=== PATIENT | female | born 1960 | race African-American/Black ===

== ENCOUNTER 2019-07-18 08:49 | Inpatient (IN) | payer OTHER ==
[2019-07-18] VITALS (12 sets, daily range): BP systolic 115–165; BP diastolic 63–91
[~2019-07-18] VITALS: Ht 172.7 cm; Wt 89.1 kg
--- NOTE | ~2019-07-18 | EMS ---
[address] [address] EMS Patient Care Report Name: VERÓNICA EASTMAN Room #: 360-P ADM IN M.R.#: [id number] Admission: 07/18/19 Attend Phys: Mike Kerns MD Discharge: Date of : 56 Report #: [id number] THIS REPORT FOR: //name// Report Transmitted: 07/18/2019 08:21 EMS Care Summary [place], [place] Incident [id number] @ 07/18/2019 08:20 Incident Location [id number] [place] [address] Patient DEEPIKA EASTMAN Female, 58 Years 1960 Patient Address [address] [place], [place] [id number] Patient History Cardiac Arrythmia,Congestive Heart Failure (CHF),Chronic Obstructive Pulmonary Disease (COPD),Diabetes,Hypertension (HTN),Pacemaker/AICD,Hyperlipidemia,Morbid Obesity,Cardiac Condition - Other, Patient Allergies Codeine,Penicillin allergy, Patient Medications Famotidine, Lasix, Ondansetron, Colace, Prednisone, Ventolin, Xarelto, Morphine, Amlodipine, Metoprolol, Zinc, Oxybutynin, Gabapentin, Fentanyl, Chief Complaint SOA Disposition Transported No Lights/[place] Dispatch Reason Breathing Problem Transported To [facility] [address] [place] [address] EMS Patient Care Report Name: VERÓNICA EASTMAN Room #: 360-P [facility] IN Piter#: [id number] Admission: 07/18/19 Attend Phys: Mike Kerns MD Discharge: Date of : 56 Report #: [id number] RESPONDED TO [facility] FOR BREATHING PROBLEMS. UPON ARRIVAL PT FOUND LAYING IN BED ALERT BUT EFFORT TO BREATHE. PT ALREADY ON SECOND ALBUTEROL TREATMENT AND SATS AT 86. INITIALLY PT SATS AT 60 PER NC STAFF. PT HAD EDEMA IN BOTH LIMBS AND DIALYSIS FISTULA IN RIGHT ARM. PT SPEAKS LABORED SENTENCES AND REPORTS FEELING SOA SINCE LAST NIGHT. PT TEAM LIFTED TO COT AND PUT ON NRB AT 15LPM. PT VITALS AND 3 LEAD OBTAINED. PT TRANSPORTED NONEMERGENCY TO [facility]. EN ROUTE PT SATS INCREASED AND PT REPORTS MILD RELIEF. PT TEAM LIFTED TO BED AND HANDRAILS UP. REPORT GIVEN TO NURSE. Initial Vitals @08:43P: 88,R: 22,BP: 118/74,SpO2: 93, @08:32P: 90,R: 22,BP: 118/72,Pain: 8/10,GCS: 15,Glucose: 124,SpO2: 86,Revised Trauma: 12, Assessments @08:27MENTAL:Time Oriented,Person Oriented,Event Oriented,Place Oriented,SKIN:HEENT:Head/Face: No Abnormalities,Neck/Airway: No Abnormalities,LUNG SOUNDS:General: No Abnormalities,Left Upper: No Abnormalities,Right Upper: No Abnormalities,Left Lower: No Abnormalities,Right Lower: No Abnormalities,ABDOMEN:General: No Abnormalities,Left Upper: No Abnormalities,Right Upper: No Abnormalities,Left Lower: No Abnormalities,Right Lower: No Abnormalities,PELVIS//GI:Incontinence,EXTREMITIES:Right Leg: Edema,Left Leg: Edema,Left Arm: No Abnormalities,Right Arm: No Abnormalities,PULSE:NEURO:No Abnormalities,@08:32MENTAL:No Abnormalities,SKIN:HEENT:Head/Face: No Abnormalities,Eyes: No Abnormalities,Neck/Airway: No Abnormalities,LUNG SOUNDS:General: No Abnormalities,Left Upper: No Abnormalities,Right Upper: No Abnormalities,Left Lower: No Abnormalities,Right Lower: No Abnormalities,ABDOMEN:General: No Abnormalities,Left Upper: No Abnormalities,Right Upper: No Abnormalities,Left Lower: No Abnormalities,Right Lower: No Abnormalities,PELVIS//GI:Incontinence,EXTREMITIES:Left Leg: Edema,Right Leg: Edema,Left Arm: No Abnormalities,Right Arm: No Abnormalities,PULSE:NEURO:No Abnormalities, Impression Acute Respiratory Distress (Dyspnea) Procedures @08:30Oxygen FlowRate: 15 Device: Non Re-breather Mask (NRB) Response: ImprovedSucceeded@PTAAlbuterol - 2.5 Milligrams (mg) - Nebulized@08:353-Lead ECGResponse: UnchangedSucceeded@08:27ALS AssessmentResponse: UnchangedSucceeded 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,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 - 2.5 Milligrams (mg) - Nebulized, 08:19,Call Received 08:19,Dispatch Notified [address] [address] EMS Patient Care Report Name: VERÓNICA EASTMAN Room #: 360-P [facility] IN M.R.#: [id number] Admission: 07/18/19 Attend Phys: Mike Kerns MD Discharge: Date of : 56 Report #: [id number] 08:20,Dispatched 08:21,En Route 08:25,On Scene 08:27,At Patient 08:27,ALS Assessment,Response: UnchangedSucceeded, 08:30,Oxygen FlowRate: 15 Device: Non Re-breather Mask (NRB) Response: ImprovedSucceeded, 08:32,BP: 118/72 M,PULSE: 90,RR: 22 R,SPO2: 86 Ox,ETCO2: ,B,PAIN: 8,GCS: 15, 08:35,3-Lead ECG,Response: UnchangedSucceeded, 08:37,Depart Scene 08:43,BP: 118/74 M,PULSE: 88,RR: 22 R,SPO2: 93 Ox,ETCO2: ,BG: ,PAIN: ,GCS: , 08:54,At Destination 09:11,Call Closed Disclaimer v1.1 Copyright 2020 [employer] This EMS Care Summary contains data elements from the applicable legal record (which may be displayed differently). It is designed to provide pertinent information for the following purposes: continuity of care, clinical quality, and state data reporting. The complete legal record is available to ED staff and administrators of the receiving hospital in [facility]'s Patient Tracker. All data is provided "as is."
--- NOTE | ~2019-07-18 | HC ---
[facility] [place] [address] [place] [address] CONSULTATION Name: VERÓNICA EASTMAN Room #: 241-P [facility] IN M.R.#: [id number] Admission: 07/18/19 Attend Phys: Mike Kerns MD Discharge: Date of : 56 Report #: [id number] THIS REPORT FOR: cc: Jc Lopez James D. DO Al-Absi, Ahmed I. MD ~ CC: Jc Kerns DATE OF SERVICE: 07/19/2019 REASON FOR CONSULTATION: Acute kidney injury. REASON FOR PRESENTATION: Shortness of breath. HISTORY OF PRESENT ILLNESS: This is a long-term patient, who was brought from her [facility] because of significant hypoxemia. The patient had reported that she has been having some issues with breathing in the last couple of days in her facility. She was found to have an O2 sat of 60% on 3 liters. She was placed on a nonrebreather. She was brought to our facility for further evaluation and management. She was found to have a significantly elevated creatinine at 3.0. I do not have any previous records on this patient other than some lab values back in 2013 and she had a normal kidney function back then. The patient completely denies any prior knowledge of kidney disease. The patient tells me that she was told at one point in another facility that she had abnormal kidney function, but she does not recall the exact details. She denies nonsteroidal anti-inflammatory medication usage. The patient is maintained on blood pressure medication, furosemide, steroids as an outpatient. She carries a diagnosis of diastolic heart failure, COPD, right-sided CVA, flaccid paralysis. She also is known to have DVT and PE. The patient was in [facility] for pneumonia and was discharged a few days ago. I do not have the details of her kidney disease values in that facility. PAST MEDICAL HISTORY: 1. Gastrointestinal bleeding. 2. Chronic obstructive pulmonary disease. 3. Heart failure. 4. Cerebrovascular accident. 5. Right-sided hemiplegia. 6. Chronic kidney disease, unknown baseline. 7. Laminectomy. 8. Diverticulosis. 9. Deep venous thrombosis. 10. Pulmonary embolism. 11. Asthma. 12. Remote history of peritoneal abscess. [facility] [address] [place] [address] CONSULTATION Name: VERÓNICA EASTMAN Room #: 241-P [facility] IN [facility]#: [id number] Admission: 07/18/19 Attend Phys: Mike Kerns MD Discharge: Date of : 56 Report #: [id number] MEDICATIONS: 1. Carvedilol. 2. Eliquis. 3. Gabapentin. 4. Furosemide. 5. Nifedipine. 6. Hydrocodone. 7. Prednisone. ALLERGIES: PENICILLIN AND CODEINE. FAMILY HISTORY: Significant for hypertension. REVIEW OF SYSTEMS: GENERAL: Significant for fever and chills. CARDIOVASCULAR: As per the history of present illness. PULMONARY: As per the history of present illness. GASTROINTESTINAL: No nausea or vomiting. GENITOURINARY: No frequency, no urgency. MUSCULOSKELETAL: Occasional back pain and myalgias. NEUROLOGICAL: Right-sided flaccid paralysis. PHYSICAL EXAMINATION: VITAL SIGNS: The patient was on CPAP when evaluated this morning, blood pressure was 155/87. Temperature was 35.9. HEAD AND NECK: Maintained on CPAP. CARDIOVASCULAR: No rubs detected. CHEST: Decreased air entry bilaterally with rhonchi and crackles on the right side. ABDOMEN: Soft, nontender. LOWER EXTREMITIES: Trace edema. LABORATORY DATA: Reviewed. White blood cell count was 28.8. On presentation, hemoglobin was 8.1. Sodium is 142, potassium is 4.5, BUN is 80, creatinine is 2.8, down from 3 yesterday. Procalcitonin was significantly elevated at 17. IMPRESSION AND PLAN: 1. Acute kidney injury. 2. Chronic kidney disease, unknown baseline. 3. Respiratory failure. 4. Right-sided pneumonitis. 5. DVTs. 6. Post-IV filter. 7. Recent hospitalization at [facility]. 8. The patient's creatinine seems to be improving and her current worsening of [address] [address] CONSULTATION Name: VERÓNICA EASTMAN Room #: [facility]-P ADM IN ..#: [id number] Admission: 07/18/19 Attend Phys: Mike Kerns MD Discharge: Date of : 56 Report #: [id number] the kidney function is likely related to her current illness. She has a significantly elevated white blood cell count and calcitonin with a very significant infiltrate on the right side. 9. Continue with IV fluid. 10. Continue to watch volume status. 11. Continue to watch electrolytes. 12. Monitor urine output. 13. Appropriate antibiotic coverage for her pneumonitis. 14. Pulmonary following. 13. No diuresis at this point. By: [id number] Casey Kim MD /nt
[~2019-07-18 08:49] MED LIST: COLACE100 MG PO; COUMADIN 5 MG TA5 M1; FLAGYL500 M1 PO; GABAPENTIN800 M1 PO; LEVAQUIN 500 M500 M2 PO; LORAZEPAM 0.50.5 MG PO; MORPHINE SULFAT30 M2 PO; MS CONTIN15 MG PO; MS CONTIN30 MG PO; NORVASC10 MG PO; PHENERGAN 25 MG25 M1 PO; PREDNISONE 10 M10 MG PO; PRILOSEC 20 MG20 MG PO; PRINIVIL40 MG PO; PROAIR HFA8.5 GM INH; SYMBICORT160 MCG/4. INH; THEO-24300 MG PO; THEOPHYLLINE S300 M1 PO; VENTOLIN HFA 1818 GM INH; ZESTORETIC 20-1 EAC3 PO
[2019-07-18 09:07] LABS: HCO3 31.5 mmol/L (22.0-26.0); PCO2 56.5 mmHg (35.0-45.0); PO2 68.3 mmHg (80.0-100.0); pH 7.364 (7.360-7.450); sO2 92.7 % (92.0-98.0)
[2019-07-18 09:46] LABS: HEMATOCRIT 31.5 % (37.0-47.0); HEMOGLOBIN 9.7 gm/dL (12.0-15.0); MCH 28.5 pg (26.0-34.0); MCHC 30.9 g/dL (28.0-37.0); MCV 92.4 fL (80.0-100.0); PLATELET COUNT 184 thou/uL (150-400); RBC 3.41 mil/uL (4.20-5.00); RDW 17.1 % (10.5-14.5); WBC 28.8 thou/uL (4.0-11.0)
[2019-07-18 10:01] LABS: APTT 25.5 Seconds (24.5-32.8); PROTIME 10.7 Seconds (9.3-11.4)
[2019-07-18 10:05] LABS: ANION GAP 5 mmol/L (7-16); BUN 77 mg/dL (7-18); CALCIUM 8.8 mg/dL (8.5-10.1); CHLORIDE 101 mmol/L (98-107); CO2 36 mmol/L (21-32); GLUCOSE 114 mg/dL (74-106); SODIUM 142 mmol/L (136-145)
[2019-07-18 10:15] LABS: ALBUMIN 2.4 g/dL (3.4-5.0); MAGNESIUM 2.1 mg/dL (1.8-2.4); SGOT 11 U/L (15-37); SGPT 22 U/L (30-65); TOTAL BILIRUBIN 1.5 mg/dL (<0.1-1.0); TOTAL PROTEIN 5.1 g/dL (6.4-8.2); TROPONIN-I <0.06 ng/mL (<0.06)
[2019-07-18] MEDS ORDERED: A AND D OINTM42.5 GM TOP (10:16)
[2019-07-18] MEDS ORDERED: CEFDINIR300 MG PO (10:17)
[2019-07-18] MEDS ORDERED: AEROECLIPSE II1 EACH NEB (10:17)
[2019-07-18] MEDS ORDERED: CARVEDILOL25 MG PO (10:18)
[2019-07-18] MEDS ORDERED: ELIQUIS5 MG PO (10:18)
[2019-07-18] MEDS ORDERED: VITAMIN D21250 MCG PO (10:18)
[2019-07-18] MEDS ORDERED: NEURONTIN100 MG PO (10:19)
[2019-07-18] MEDS ORDERED: FOSAMAX 70 MG T70 MG PO (10:19)
[2019-07-18] MEDS ORDERED: [UNRECOGNIZED DRUG - OTHER] NEB (10:20)
[2019-07-18] MEDS ORDERED: LASIX 40 MG TAB40 MG PO (10:20)
[2019-07-18] MEDS ORDERED: IPRAT-ALBUT 0.5-3 ML NEB (10:20)
[2019-07-18] MEDS ORDERED: HYDRALAZINE 5050 MG PO (10:20)
[2019-07-18] MEDS ORDERED: NIFEDIPINE ER30 M1 PO (10:24)
[2019-07-18] MEDS ORDERED: LIDODERM1 EACH TOP (10:24)
[2019-07-18] MEDS ORDERED: NORCO 5-325 TA1 EAC2 PO (10:24)
[2019-07-18] MEDS ORDERED: PREDNISONE 5 MG5 M1 PO (10:25)
[2019-07-18] MEDS ORDERED: PROTONIX40 M1 PO (10:34)
[2019-07-18] MEDS ORDERED: SINGULAIR 10 MG10 M1 PO (10:34)
[2019-07-18] MEDS ORDERED: PULMICORT0.5 MG/2 M NEB (10:34)
[2019-07-18 11:04] LABS: ABSOLUTE NEUTROPHILS 27.6 thou/uL (1.4-8.2); PLATELET ESTIMATE NORMAL
--- NOTE | 2019-07-18 11:06 | NUR ---
PT VERBALIZED TO EDP AT THIS TIME THAT SHE DOES NOT WANT TO BE INTUBATED SHOULD SHE CONTINUE TO REQUIRE RESPIRATORY/VENTILATORY SUPPORT. JENNIFER, RT, IN ROOM AT THIS TIME TO ADJUST BiPAP SETTINGS.
--- NOTE | 2019-07-18 11:55 | NUR ---
vascular access team consulted for picc line, PT HAS CURRENT OCCLUSIVE THROMBUS MID TO DISTAL RIGHT CEPHALIC, ALSO HAS HX DVT/PE PT HAS VENA CAVA FILTER. PT ON BIPAP UNABLE TO LAY FLAT FOR CVAD BY VASCULAR NURSE. SPOKE TO SYLVIA TRACY IN ED RECOMMEND PT GO TO IR FOR TICC . PT ALSO HAS LOW GFR.
--- NOTE | 2019-07-18 12:24 | NUR ---
WOUND CARE CONSULT; ASSESSMENT OF A BULLA TO THE RIGHT FORARM. IT IS INTACT AT THIS TIME. I PAINTED IT WITH BETADINE. PATIENT IS ON BIPAP CURRENTLY. RECOMMENDATIONS; PROTECT THE BLISTER WITH A FOAM DRESSING, SECURED WITH A KERLIX.
[2019-07-18 13:01] LABS: URINE BILIRUBIN NEGATIVE (Negative); URINE BLOOD NEGATIVE (Negative); URINE CLARITY CLEAR; URINE COLOR YELLOW; URINE GLUCOSE-RANDOM* NEGATIVE (Negative); URINE KETONES NEGATIVE (Negative); URINE LEUKOCYTES-REFLEX NEGATIVE (Negative); URINE NITRITE-REFLEX NEGATIVE (Negative); URINE PROTEIN (DIPSTICK) TRACE (Negative); URINE UROBILINOGEN 0.2 E.U./dl (0.2-1.0)
--- NOTE | 2019-07-18 14:21 | 2DMMODE ---
[facility] [place] [address] 2 D/M-MODE ECHOCARDIOGRAM Name: DEEPIKA EASTMAN Room #: 170-12 ADM IN M.R.#: [id number] Admission: 07/18/19 Attend Phys: Mike Kerns MD Discharge: Date of : 56 Report #: [id number] THIS REPORT FOR: cc: Jc Lopez James D. DO Park, Jin S. MD ~ APPROVED REPORT Study performed: 07/18/2019 13:26:58 EXAM: Comprehensive 2D, Doppler, and color-flow Echocardiogram Patient Location: ER Room #: 12 Status: routine BSA: 1.95 HR: 86 bpm BP: 129/85 mmHg Rhythm: Atrial Flutter Other Information Study Quality: Good Indications Congestive Heart Failure COPD Atrial flutter 2D Dimensions IVSd: 13.45 (7-11mm) LVOT Diam: 20.73 (18-24mm) LVDd: 39.82 mm PWd: 12.23 (7-11mm) Ascending Ao: 35.35 (22-36mm) LVDs: 24.35 (25-40mm) Aortic Root: 33.52 mm IVC: 25.00 mm Volumes Left Atrial Volume (Systole) Single Plane 4CH: 44.12 mL Single Plane 2CH: 25.79 mL LA ESV Index: 20.00 mL/m2 Aortic Valve AoV Peak Guevara.: 1.29 m/s AO Peak Gr.: 7.52 mmHg LVOT Max P.75 mmHg LVOT Max V: 1.09 m/s ROSI Vmax: 2.85 cm2 [facility] [address] [place] [address] 2 D/M-MODE ECHOCARDIOGRAM Name: DEEPIKA EASTMAN Room #: 170-12 ADM IN .Oneal.#: [id number] Admission: 07/18/19 Attend Phys: Mike Kerns MD Discharge: Date of : 56 Report #: [id number] Pulmonary Valve PV Peak Guevara.: 1.00 m/s PV Peak Gr.: 3.99 mmHg Tricuspid Valve TR Peak Guevara.: 3.01 m/s TR Peak Gr.: 36.20 mmHg PA Pressure: 46.00 mmHg Left Ventricle The left ventricle is normal size. Mild concentric left ventricular hypertrophy. Left ventricular systolic function is hyperdynamic. LVEF is >70%. Grade I - abnormal relaxation pattern. Right Ventricle The right ventricle is normal size. The right ventricular systolic function is normal. Atria The left atrium size is normal. Right atrium is borderline dilated. Aortic Valve The aortic valve is normal in structure. No aortic regurgitation is present. There is no aortic valvular stenosis. Mitral Valve The mitral valve is normal in structure. There is no mitral valve regurgitation noted. No evidence of mitral valve stenosis. Tricuspid Valve The tricuspid valve is normal in structure. There is trace tricuspid regurgitation. Estimated PAP 46 mmHg. There is moderate pulmonary hypertension. Pulmonic Valve The pulmonary valve is normal in structure. There is no pulmonic valvular regurgitation. Great Vessels The aortic root is normal in size. IVC is dilated and collapses <50% with inspiration. Pericardium There is no pericardial effusion. [facility] [address] [place] [address] 2 D/M-MODE ECHOCARDIOGRAM Name: DEEPIKA EASTMAN Room #: 170-12 ADM IN .R.#: [id number] Admission: 07/18/19 Attend Phys: Mike Kerns MD Discharge: Date of : 56 Report #: [id number] <Conclusion> The left ventricle is normal size. Mild concentric left ventricular hypertrophy. Left ventricular systolic function is hyperdynamic. The right ventricle is normal size. The left atrium size is normal. The aortic valve is normal in structure. There is no mitral valve regurgitation noted. There is trace tricuspid regurgitation. Estimated PAP 46 mmHg. <ELECTRONICALLY SIGNED> By: Ayden Perez MD 07/18/191419 19 19 Ayden Perez MD /INF
[2019-07-18 19:28] LABS: BE(vivo) 3.6 mmol/L (-2 to +3); HCO3 28.4 mmol/L (22.0-26.0); PCO2 43.9 mmHg (35.0-45.0); pH 7.428 (7.360-7.450); sO2 93.4 % (92.0-98.0)
--- NOTE | 2019-07-18 19:50 | NUR ---
VASCULAR ACCESS CALLED TO ICU FOR PIV ON PT, THIS PT WAS SEEN AT 1155 THIS AM AND TICC BY IR WAS RECOMMENDED. PT IS UNABLE TO LAY FLAT FOR CENTRAL LINE, HAS PRESENT CLOT IN RIGHT ARM. CAME TO ICU WITH LARGE INFILTRATE IN ANTONINO FROM PIV. USG WAS USED TO FING LAC PIV BUT PT DOES NOT HAVE ADEQUATE VESSELS FOR ANY ADDITIONAL PIV'S.
--- NOTE | 2019-07-18 19:52 | NUR ---
PT ARRIVED FROM ED. PLACED ON MONITOR. KATHY BIPAP. REQUESTING PAIN MEDS FOR R ARM. SISTER ON FACETIME CALL. PHONE ON RESIDENT ASSISTANT CNA. HAND OFF TO NIGHT NURSE
[2019-07-19] VITALS (28 sets, daily range): BP systolic 143–175; BP diastolic 64–114
[2019-07-19 05:07] LABS: ABSOLUTE NEUTROPHILS 30.8 thou/uL (1.4-8.2); BASOPHILS 0.3 % (0.0-2.0); HEMATOCRIT 25.8 % (37.0-47.0); HEMOGLOBIN 8.1 gm/dL (12.0-15.0); LYMPHOCYTES 0.2 % (24.0-44.0); MCH 28.9 pg (26.0-34.0); MCHC 31.5 g/dL (28.0-37.0); MCV 91.8 fL (80.0-100.0); MONOCYTES 1.9 % (1.0-8.0); PLATELET COUNT 119 thou/uL (150-400); POLYS 97.6 % (36.0-66.0); RBC 2.81 mil/uL (4.20-5.00); RDW 16.7 % (10.5-14.5); WBC 31.6 thou/uL (4.0-11.0)
[2019-07-19 05:14] LABS: CALCIUM 8.3 mg/dL (8.5-10.1); CREATININE 2.8 mg/dL (0.6-1.0); MAGNESIUM 2.2 mg/dL (1.8-2.4); POTASSIUM 4.5 mmol/L (3.5-5.1)
[2019-07-19 05:39] LABS: BE(vivo) 5.9 mmol/L (-2 to +3); PCO2 47.9 mmHg (35.0-45.0); PO2 85.7 mmHg (80.0-100.0); pH 7.429 (7.360-7.450); sO2 96.6 % (92.0-98.0)
[2019-07-19 05:59] LABS: ANISOCYTOSIS 1+
--- NOTE | 2019-07-19 07:44 | NUR ---
PT MAINTAINING ADEQUATE OXYGENATION ON THE BIPAP. NEGATIVE FOR FLU, MRSA STILL PENDING. LEFT UPPER ARM IV BY IV TEAM INFILTRATED LAST NIGHT, PT IS A DIFFICULT STICK, NEEDS A TICC LINE. LEFT UPPER ARM IS EDEMATOUS, CIRCUMFERENCE MEASURING 16 INCHES. CURRENTLY HAS A PERIPHERAL IV ON THE LEFT FOREARM THAT IS PATENT.
--- NOTE | 2019-07-19 19:36 | NUR ---
ASSUMED CARE @ 0700 07/19/19, PT ASSESSMENTS AND VSS COMPLETE. PT ON NC MOST OF THE DAY, 02 SATS IN THE 90'S. BIPAP PRN IF NEED. PT PROGRESSING TOWARDS POC.
[2019-07-20] VITALS (21 sets, daily range): BP systolic 113–182; BP diastolic 71–84
--- NOTE | 2019-07-20 05:00 | NUR ---
NO CHANGES OVERNIGHT. PT ON 4L O2 PER NC AND BECOMES SOA WITH ANY ACTIVITY. PT WORE BIPAP FOR A FEW HOURS OVERNIGHT. PT C/O PAIN IN BUE, BUT IT WAS RELIEVED WITH PAIN MEDICATION. PT IS PROGRESSING SLOWLY. WILL CONTINUE TO MONITOR.
[2019-07-20 05:05] LABS: HEMATOCRIT 23.9 % (37.0-47.0); HEMOGLOBIN 7.4 gm/dL (12.0-15.0); MCH 28.5 pg (26.0-34.0); MCHC 31.2 g/dL (28.0-37.0); MCV 91.5 fL (80.0-100.0); RBC 2.61 mil/uL (4.20-5.00); RDW 17.2 % (10.5-14.5)
[2019-07-20 05:08] LABS: ALBUMIN 1.8 g/dL (3.4-5.0); CALCIUM 8.3 mg/dL (8.5-10.1); CREATININE 2.8 mg/dL (0.6-1.0); PHOSPHORUS 5.2 mg/dL (2.5-4.9); POTASSIUM 4.3 mmol/L (3.5-5.1)
[2019-07-20 11:11] LABS: % SATURATION 7 % (20-39); IRON 9 ug/dL (50-170); TIBC 130 ug/dL (250-450)
[2019-07-20 11:38] LABS: FOLIC ACID 4.5 ng/mL (8.6-58.9)
[2019-07-20 11:53] LABS: D-DIMER 1.99 ug/mLFEU (0.19-0.50); FIBRINOGEN 546.4 mg/dL (210-360)
--- NOTE | 2019-07-20 18:23 | NUR ---
ASSUMED CARE @ 0700 07/20/19, PT ASSESSMENTS AND VSS COMPLETE PER ICU PROTOCOL AT START OF DAY, PT NOW M/S TELE STATUS PER DR CHAVES. DR VENTURA AND DR CHAVES HERE DURING SHIFT TO SEE PT, ORDERS RECIEVED. PT PROGRESSING TOWARDS POC.
[2019-07-21] VITALS: BP 125/78
[2019-07-21 02:00] VITALS: BP 124/75
[2019-07-21 04:00] VITALS: BP 132/84
[2019-07-21 05:54] LABS: ALBUMIN 1.8 g/dL (3.4-5.0); CALCIUM 8.1 mg/dL (8.5-10.1); CREATININE 2.9 mg/dL (0.6-1.0); PHOSPHORUS 5.2 mg/dL (2.5-4.9); POTASSIUM 4.3 mmol/L (3.5-5.1)
--- NOTE | 2019-07-21 07:27 | NUR ---
NO CHANGES OVERNIGHT. PT WORE BIPAP FOR ABOUT 5 HOURS. CONTINUED TO MIX LAXATIVE WITH DRINKS, ONE BM OVERNIGHT. PT IS PROGRESSING. WILL CONTINUE TO MONITOR.
[2019-07-21 08:00] VITALS: BP 119/74
--- NOTE | 2019-07-21 09:28 | NUR ---
chart review, pt up in bed, o2 4 l per nasal cannula. pt a 7 o x 3 and able to make her needs know. " need new mouth piece before going back there."/agnes. intro to cm, dcp, hh and post acute rehab. pt reported " i know need new mouth piece before going back here, [facility] for rehab. live home with twin sister ashley, i care for her. she in [facility] on [address] right now. house, no home oxygen. have walker and wheel chair. manage own medication , no home health in past. i was just here at [facility] for rehab and it ok for rehab then i will be going home."/agnes. cm left message with facility liaison to see verify if pt snf or ltc. will cont following as needed for dc needs.
--- NOTE | 2019-07-21 10:38 | NUR ---
1020 PT TRANSFERED FROM ICU TO 360, ALERT AND ORIENTED AT X4, COMPLAINS OF RIGHT PAIN, 7/10, STABBING. PT HAS A CONGESTED COUGH PRODUCTIVE AT TIMES. SAMPLE TAKEN PER ORDER. ASSESSMENT COMPLETED. PT ORIENTED TO ROOM. CALL LIGHT IN REACH AND TABLE WITHIN REACH REACH. BED AT LOWEST LEVEL WITH ALARM ON. WILL CONTINUE TO MONITOR
--- NOTE | 2019-07-21 10:38 | NUR ---
ALERT AND ORIENTED, VITALS STABLE AND DENIED PAIN. TOLERATING DIET W/O NAUSEA. ORDERS TO TRANSFER OUT OF ICU ALREADY IN [facility]. REPORT CALLED TO JOHN MEJIA ON 3W AND PATIENT MOVED TO 360 VIA BED. BELONGINGS WITH PATIENT INCLUDED PURSE, CELL PHONE AND ANIMAL CARE SERVICE WORKER.
[2019-07-21 11:13] LABS: HEMATOCRIT 23.3 % (37.0-47.0); HEMOGLOBIN 7.3 gm/dL (12.0-15.0); MCH 28.7 pg (26.0-34.0); MCHC 31.2 g/dL (28.0-37.0); PLATELET COUNT 95 thou/uL (150-400); RBC 2.53 mil/uL (4.20-5.00); WBC 20.6 thou/uL (4.0-11.0)
--- NOTE | 2019-07-21 11:40 | NUR ---
WOUND CARE F/U BLISTER R FOREARM DRY, NO LONGER FLUID FILLED, HEALING, NO S/S INFECTION, PT ALERT, COOPERATIVE, SEE PROCESS INTERVENTION FOR DETAILS RECOMMENDATIONS CONT W/ OPTIFOAM AG DRSG, KERLIX, 3XWEEK AND PRN. 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
[2019-07-21 11:49] LABS: ABSOLUTE NEUTROPHILS 20.2 thou/uL (1.4-8.2); NUCLEATED RBCS 2 /100WBC; PLATELET ESTIMATE SLIGHTLY DECREASED
--- NOTE | 2019-07-21 15:58 | NUR ---
RECEIVED CALL THIS AFTERNOON FROM PT'S BESSY ARSHAD CASEMANAGER SAYING PT WAS OUT OF NETWORK FOR THIS HOSPITAL & NEEDS TO TRANSFER TO A [facility] OR [facility] SINCE SHE HAS NO OUT OF NETWORK BENEFITS UNDER HER PLAN. INFORMED PT & DISCUSSED OPTIONS OF FACILITIES. SHE CHOSE [facility]. NOTIFIED DR ADAME OF THE ABOVE WELL & SHE SAYS PT IS STABLE TO TRANSFER TO A TELE BED. S/W [facility] CERTIFIED [facility] [phone] & FAXED OVER FACE SHEET AND RECORDS FROM TODAY. ASKED UNIT TO MAKE CAHRT COPY. CALLED [facility] & ASK THEM TO CLOUD PT'S FILMS TO [facility]. NOTIFIED DR ADAME OF THE ABOVE. AWAITING WORD BACK FROM [facility] ON ACCEPTANCE & BED AVAILABILITY.
--- NOTE | 2019-07-21 16:47 | NUR ---
TRANSFER FORM REVIEWED AND STARTED WITH JOHN MEJIA, [place] SECOND LANGUAGE TUTOR FAXED DOWN AMB FORM WELL. S/W FINISH [facility]ANDER AGAIN AND STILL NO WORD. PER RN JOHN DOES NOT FELL STABLE FOR TRANSFER. REFERRED HER TO S/W DR ADAME ABOUT THIS.
[2019-07-21 18:02] VITALS: BP 121/77
[2019-07-21 19:15] VITALS: BP 121/76
[2019-07-22 04:15] VITALS: BP 140/80
[2019-07-22 04:45] LABS: ALBUMIN 1.9 g/dL (3.4-5.0); CALCIUM 7.9 mg/dL (8.5-10.1); CREATININE 2.9 mg/dL (0.6-1.0); PHOSPHORUS 4.9 mg/dL (2.5-4.9); POTASSIUM 5.1 mmol/L (3.5-5.1)
--- NOTE | 2019-07-22 04:47 | NUR ---
wore her bipap, from 2300 to 0300. she needs encouraging to wear the bipap. she is keeping her os sats in the low 90's, on 6 liters. refuses to wear it at this time. complains of pain to the right arm. herman reviewed
[2019-07-22 08:16] VITALS: BP 126/75
[2019-07-22 08:55] LABS: HEMATOCRIT 22.3 % (37.0-47.0)
--- NOTE | 2019-07-22 10:10 | NUR ---
S/W [facility] LAST NIGHT AT 2030 AND [facility] 15 HOLDING IN [facility] ER ER, [facility] IS CLOSED TO TRANSFERS. RECEIVED MESSAGE THIS AM FROM DR ADAME THAT PT WANTS TO GO TO [facility] NOW. S/W THEIR TRANSFER CENTER AND THEY SHAE CLOSED TO TAKING OTHER INPTS FROM HOSPITALS, THEY HAVE 20 WAITING IN THEIR ER. S/W [facility] TRANSFER TEAM AGAIN & [facility] STILL HOLDING PT'S IN ER, [facility] STILL CLOSED. THEIR OPEN FACILITIES ARE [facility] AND [facility]. [facility] WORK TO VISIT WITH PT TO SEE WHERE SHE WANTS TO GO. MESSAGE LEFT DFOR PT'S INS NORMA TRONCOSO TO ALERT OF THE ABOVE AND ABOUT CONTINUED EFFORTS TO GET THIS PT TO A NETWORK FACILITY.
[2019-07-22 11:58] VITALS: BP 132/73
[2019-07-22 15:40] VITALS: BP 143/77
--- NOTE | 2019-07-22 16:21 | NUR ---
ZACARIAS reviewed chart and spoke with nursing and attending physician. Pt needs to transfer to another acute hospital due to insurance. ZACARIAS spoke with [facility] transfer center this morning: [facility] is on diversion. [facility] is closed for transfers. [facility] and [facility] both have pts in ER waiting for admission. [facility] did have a bed for pt last evening. Pt refused transfer at that time. ZACARIAS met with pt at bedside three times today to discuss transfer. Pt is agreeable with transfer to any [facility] facility except [facility] due to previous experience. ZACARIAS spoke with Merary in the transfer center at 1600, who states that the hospitals are still unable to accept a transfer. ZACARIAS updated pt's nurse and attending physician. ZACARIAS is following to assist as needed with discharge planning.
[2019-07-22 19:56] VITALS: BP 131/74
[2019-07-23 04:14] VITALS: BP 132/75
[2019-07-23 06:12] LABS: ALBUMIN 1.8 g/dL (3.4-5.0); CREATININE 2.9 mg/dL (0.6-1.0); POTASSIUM 5.6 mmol/L (3.5-5.1)
--- NOTE | 2019-07-23 07:44 | NUR ---
ASSUMED CARE AT 1900. PT C/O PAIN IN RIGHT ARM, REQUESTS FREQ PAIN MEDS. CONGESTED COUGH WITH OCCASIONAL SPUTUM OUTPUT, WHEEZY LUNG SOUNDS, ASKED TO GO ON BIPAP ABOUT 0330. EXT CATH LEAKED, CHANGED AND STARTED WORKING BETTER. HAD ONE EPISODE OF FEELING NAUSEATED ABOUT 0100, GAVE ZOFRAN FOR RELIEF. PLAN FOR TRANSFER TO [facility]. NO OTHER CONCERNS, SHIFT REPORT GIVEN AT 0700.
[2019-07-23 08:32] VITALS: BP 134/83
--- NOTE | 2019-07-23 09:46 | NUR ---
WOUND CARE F/U ALERT AND COOPERATIVE, BLISTER R FOREARM DRY, NO FLUID PRESENT, VERY FRAGILE SKIN, ASSESSED WOUND W/ BOND ANALYST, NO S/S INFECTION, PHOTO TAKEN, HEALING RECOMMENDATIONS DUE TO FRAGILE SKIN CONT W/ COVERING WOUND W/ OPTIFOAM AG, KERLIX, 3X WEEK AND PRN, BOND ANALYST AWARE
[2019-07-23 11:23] VITALS: BP 139/81
[2019-07-23 14:55] LABS: HEMATOCRIT 22.3 % (37.0-47.0); HEMOGLOBIN 7.1 gm/dL (12.0-15.0)
--- NOTE | 2019-07-23 15:07 | NUR ---
ZACARIAS reviewed chart and spoke with nursing and attending physician. Pt remains stable for transfer to another acute hospital per insurance. ZACARIAS spoke norma Sagastume in [facility] transfer center this morning. [facility], [facility] and [facility] all have pts waiting in ER for placement and [facility] is closed to transfers. ZACARIAS faxed updated info to [facility] for review. ZACARIAS met with pt at bedside to provide update. Pt agreeable with transfer to an [facility] facility. Pt was on the phone with her sister, Onelia. Onelia had multiple questions for SW regarding reason for transfer. Pt's sister states that she does not feel that pt is stable for transfer, and had multiple questions regarding insurance coverage for pt since she has been in the hospital. Pt with questions about getting a new mask for her trilogy machine. SW explained that she would need to follow up with [facility] when she returns to [facility], or after she is discharged from the hospital. ZACARIAS spoke with Emma at [facility], who states that pt was set up with the trilogy on 07/11 at [facility]. ZACARIAS also spoke with Diya at [facility], who states they are closed to transfers at this time. ZACARIAS updated UR RN and Director of Case Mgmt. ZACARIAS is following to assist as needed with discharge planning.
--- NOTE | 2019-07-23 15:07 | NUR ---
FAXED FACE SHEET TO [employer], PT HAS [place] MEDICAID [place] BUT NEEDS TO MEET A SPINDOWN. WILL HAVE THEM ASSIST WITH THIS PROCESS. NOTIFIED THIS AM BY ABA HAMILTON THAT PT WILL HAVE SOME COVERAGE HERE DUE TO DIFFICULTIES IN FINDING A BED AT A NETWORK FACILITY. NOTIFIED CASE MGT DIRECTOR OF THE ABOVE INFO.
[2019-07-23 15:18] VITALS: BP 134/78
--- NOTE | 2019-07-23 16:35 | NUR ---
RECEIVED CALL FROM LUCIANO AT [facility] REQUESTING TODAYS PROGRESS NOTES & THESE WERE FAXED TO [phone]. SHE SAYS [facility] HAS 14 WAITING FOR TELE BEDS, [facility] STILL HAS NUMEROUS WAITING BUT SHE THINKS [facility] OR [facility] MAY HAVE SOMETHING. SHE IS ASKING PT'S PREFERENCE. S/W PT'S SISTER JOEL TO ATTEMPT TO ANSWER HER QUESTIONS RELATED TO INSURANCE COVERAGE & WHY PT NEEDS TO TRANSFER TO A NETWORK HOSPITAL AND WE LEFT THINGS IN GOD'S HANDS. SW TO DISCUSS WITH PT HER PREFERENCE OF FACILITY & FOLLOW-UP WITH LUCIANO IN [facility].
[2019-07-23 19:41] VITALS: BP 136/80
--- NOTE | 2019-07-23 21:44 | HC ---
[facility] [place] [address] CONSULTATION Name: VERÓNICA EASTMAN Room #: 360-P [facility] IN M.R.#: [id number] Admission: 07/18/19 Attend Phys: Mike Kerns MD Discharge: Date of : 56 Report #: [id number] THIS REPORT FOR: cc: Jc Lopez James D. DO Geha, Daniel J. MD ~ CC: Jc Kerns DATE OF SERVICE: 07/21/2019 INFECTIOUS DISEASE CONSULTATION REASON FOR CONSULTATION: I was asked to evaluate concerning pneumonia and bacteremia. HISTORY OF PRESENT ILLNESS: The patient is a 58-year-old, transferred from local longterm after her recent hospitalization at [facility], where she was diagnosed with pneumonia. Following discharge, she was at the nursing facility for about 24 hours, and noted increased shortness of breath and oxygen requirements. She was therefore transferred to [facility] Emergency Room for further care. Her white count was elevated. She has chronic kidney disease. Placed on broad antibiotic coverage. Blood cultures were obtained and now are showing Pseudomonas aeruginosa. No ongoing fever, chills or sweats. She does have intermittent cough and shortness of breath. She has underlying COPD, steroid dependent. Oxygen requirements were at 6 liters this morning, now down to 4 liters. She had a right upper extremity midline catheter, which was removed with increased swelling in her right arm. No evidence of DVT by ultrasound. She does have a cephalic vein thrombus. She has had cough and congestion with purulent sputum, and intermittent episodes of blood-tinge to this. She has had no pleuritic chest pain. She is short of breath with any activity. She states that she ambulates, but I have not seen any evidence of this yet. She has been very weak and not ambulatory at this point. She was initially placed on BiPAP. She is now out of the Intensive Care Unit on oxygen per nasal cannula. I do not have any further records from [facility]; unclear as to her treatment at that facility. It is reported that she was on cefdinir prior to her presentation. She is also on 60 mg of prednisone a day. ALLERGIES: PENICILLIN AND CODEINE. MEDICATIONS: As noted on her JUL, was on vancomycin and aztreonam. The vancomycin was discontinued. PAST MEDICAL AND SURGICAL HISTORY: GI bleed, COPD, congestive heart failure, stroke, right hemiplegia; respiratory failure, both acute and chronic; DVT with [facility] [address] [place] [address] CONSULTATION Name: VERÓNICA EASTMAN Room #: 360-P [facility] IN [facility]#: [id number] Admission: 07/18/19 Attend Phys: Mike Kerns MD Discharge: Date of : 56 Report #: [id number] PE, multiple back surgeries, diverticulosis, asthma, vena cava filter placement, chronic pain syndrome regarding her back, gastroparesis, chronic kidney disease and peritoneal abscess. FAMILY HISTORY: Negative for tuberculosis. SOCIAL HISTORY: Nonsmoker, no significant alcohol intake reported. REVIEW OF SYSTEMS: Fourteen-point review of system was negative other than what has been described above. PHYSICAL EXAMINATION: VITAL SIGNS: She was afebrile and hemodynamically stable. GENERAL: She is alert and cooperative and pleasant. She was cushingoid and obese. Had evidence of 2+ peripheral edema. SKIN: Without rash or decubitus. No palpable adenopathy. HEENT: Eyes without scleral icterus or conjunctivitis. Mouth without mucositis. NECK: Supple. LUNGS: Decreased breath sounds, predominantly in the right base posteriorly. No other adventitial sounds were audible. HEART: Regular without murmur, gallop or rub. ABDOMEN: Soft and nontender with no hepatosplenomegaly or mass. GENITALIA: Not performed. RECTAL: Not performed. EXTREMITIES: With marked edema of right upper extremity; she had weakness in this side. There was some ecchymosis involving the skin of the right arm; this was the site of her previous IV catheter. Both lower extremities were very weak. Both feet were externally rotated. BACK: Nontender. NEUROLOGIC: Cranial nerves intact. PSYCHIATRIC: Mood was within normal limits with no anxiety or depression. LABORATORY STUDIES: Reviewed. MICROBIOLOGY REPORTS: Reviewed. IMAGING: Chest x-ray and CT scan of the chest and abdomen reviewed. IMPRESSION: 1. Complicated right lung pneumonia with cavitation and complex right loculated effusion, associated with Pseudomonas aeruginosa bacteremia; sensitivities pending. 2. Underlying chronic obstructive pulmonary disease and atrial fibrillation. 3. Right upper extremity cephalic vein thrombus, complicating previous midline catheter in the setting of previous deep venous thrombosis and pulmonary [address] [address] CONSULTATION Name: VERÓNICA EASTMAN Room #: 360-P [facility] IN M.R.#: [id number] Admission: 07/18/19 Attend Phys: Mike Kerns MD Discharge: Date of : 56 Report #: [id number] embolism. 4. Chronic kidney disease with a creatinine at 2.8. 5. Previous stroke with right hemiparesis. 6. Anemia. 7. Obesity. RECOMMENDATIONS: We will continue broad antibiotic coverage, adjusted for renal failure. We will use meropenem pending culture results. Obtain sputum culture results from [facility]. We will obtain further cultures today. We will discuss further with Pulmonary Medicine regarding the need for further intervention regarding a right pleural effusion. At a minimum, I would suspect thoracentesis would be the next step. We will continue treatment of her COPD and atrial fibrillation. Anticoagulation for right upper extremity peripheral thrombus with a history of DVT and PE. <ELECTRONICALLY SIGNED> By: Basil Shelton MD 07/23/19 [id number] Basil Shelton MD /nt
[2019-07-24 04:44] LABS: ALBUMIN 1.9 g/dL (3.4-5.0); CALCIUM 8.1 mg/dL (8.5-10.1); CREATININE 2.9 mg/dL (0.6-1.0); PHOSPHORUS 5.1 mg/dL (2.5-4.9); POTASSIUM 5.6 mmol/L (3.5-5.1)
[2019-07-24 05:50] VITALS: BP 134/89
--- NOTE | 2019-07-24 06:09 | NUR ---
ASSUMED CARE AT 1900. PT C/O NAUSEA OVERNIGHT, NO EMESIS, GAVE ZOFRAN TWICE; PT HAD A LARGE SEMI-FORMED BM AROUND MIDNIGHT, SAMPLE SENT FOR OCCULT. ASKED TO GO ON BIPAP ABOUT MIDNIGHT, WORE UNTIL 0200 THEN REPORTED FEELING LIGHTHEADED AND NAUSEATED; BACK ON BIPAP ABOUT 0400. ASKED FOR PAIN MEDS MULTIPLE TIMES OVERNIGHT, ALTERNATED IV AND PO MEDS. ASKED FOR MULTIPLE SNACKS AND DRINKS OVERNIGHT. PT DECLINED LYING BACK IN BED OR TURNING SIDE TO SIDE. NO OTHER CONCERNS, WILL CONTINUE TO MONITOR.
[2019-07-24 07:40] VITALS: BP 129/85
--- NOTE | 2019-07-24 15:00 | NUR ---
ZACARIAS reviewed chart and spoke with nursing and attending physician. ZACARIAS received call from Nighat at [facility] transfer center, who states that [facility] had accepted pt. However, pt was declined due to pt having [place]-Medicaid as secondary insurance. ZACARIAS met with pt at bedside to provide update. Pt states that her preference is still [place]. ZACARIAS spoke with Merary in the transfer center to check on bed status. Awaiting call back from [facility] at this time. Paperwork on pt's chart, should a bed become available later today. ZACARIAS is following to assist as needed with discharge planning. [facility] TRANSFER MADERA-- [facility] [place]--
[2019-07-24 15:35] VITALS: BP 136/85
[2019-07-24] MEDS ORDERED: DEMADEX20 MG PO (18:40)
[2019-07-24 19:13] VITALS: BP 132/77
[2019-07-24 20:07] VITALS: BP 132/77
--- NOTE | 2019-07-25 00:16 | NUR ---
ASSUMED PT CARE AROUND 1899. RECEIVED CALL FROM [employer] [facility] THAT BED WAS AVAILABLE AT [facility] FOR PT TO TRANSFER THERE TONIGHT. NOTIFIED PT OF THIS UPDATE. NOTIFIED HYDROLOGIST. CALLED REPORT TO JACKIE ZHAO AT [facility] AT 2029. CALLED PT'S SISTER DEEPIKA AT 2111 TO UPDATE HER OF PT TRANSFER. [facility] GTT NOT STARTED THIS EVENING PT WAS SOON TO BE TRANSFERING TO ANOTHER FACILITY. DR OSEGUERA ORDERED CT OF CHEST THIS EVENING. THIS RN NOTIFIED DR OSEGUERA OF PLANS TO TRANSFER PATIENT. NO NEW ORDERS RECEIVED. THIS RN INFORMED JACKIE ZHAO AT [facility], OF DR OSEGUERA'S RECOMMENDATION THAT PT HAVE A REPEAT CT OF CHEST AFTER TRANSFER. [facility] NOTIFIED AT 2123 OF PLANS FOR PT TRANSFER TONIGHT. PT VITAL SIGNS REMAINED STABLE. O2 SATS STABLE ON 4L NC. [facility] ARRIVED TO [facility] [employer]PERATOR PATIENT. PT LEFT UNIT WITH ALL HER BELONGINGS AT 2206. PAVEL AT [facility] WAS UPDATED ONCE PT LEFT THE UNIT.
--- NOTE | 2019-07-25 15:33 | EKG ---
[facility] [place] [address] [place] [address] ELECTROCARDIOGRAM REPORT Name: VERÓNICA EASTMAN Room #: 360-P [facility] IN M.R.#: [id number] Admission: 07/18/19 Attend Phys: Mike Kerns MD Discharge: 07/24/19 Date of : 56 Report #: [id number] THIS REPORT FOR: cc: Jc Lopez James D. DO Park, Jin S. MD ~ THIS REPORT FOR: //name// [facility] ED Test Date: 2019-07-18 Test Time: 09:02:57 Pat Name: VERÓNICA EASTMAN Department: Room: [facility] Gender: F [employer] Manager: ANDREZ : 1960 Requested By: Basil Doherty Order Number: [id number] MD: Ayden Perez Measurements Intervals [place] Rate: 92 P: MT: QRS: 15 QRSD: 86 T: 65 QT: 375 QTc: 464 Interpretive Statements Sinus rhythm Consider left ventricular hypertrophy Nonspecific ST segment abnormalities Compared to ECG 02/01/2014 15:36:58 Left ventricular hypertrophy now present Electronically Signed On 07-18-2019 16:35:48 GALLEY BOY by Ayden Perez [email or web address] <ELECTRONICALLY SIGNED> By: Ayden Perez MD 07/18/19 1635 1 0902 Ayden Perez MD /EPI
== END 2019-07-24 22:07 | disposition short-term general hospital (02) | DRG 871 ==
LOC: ER 08:49 → 3W 11:05 → EROBS 11:05 → ICU 11:05 → 3W 07-21 10:22
PROVIDERS: Emergency Medicine; Hospitalist; Internal Medicine; Internal Medicine Pulmonary Disease; Nurse Practitioner; ADMIT Hospitalist
PROC: 5A09357 Assistance with Respiratory Ventilation, Less than 24 Consecutive Hours, Continuous Positive Airway Pressure (ICD-10-PCS; principal; 2019-07-18)
PROC: 5A09357 Assistance with Respiratory Ventilation, Less than 24 Consecutive Hours, Continuous Positive Airway Pressure (ICD-10-PCS; 2019-07-19)
PROC: 5A09357 Assistance with Respiratory Ventilation, Less than 24 Consecutive Hours, Continuous Positive Airway Pressure (ICD-10-PCS; 2019-07-20)
PROC: 5A09357 Assistance with Respiratory Ventilation, Less than 24 Consecutive Hours, Continuous Positive Airway Pressure (ICD-10-PCS; 2019-07-21)
PROC: 5A09357 Assistance with Respiratory Ventilation, Less than 24 Consecutive Hours, Continuous Positive Airway Pressure (ICD-10-PCS; 2019-07-22)
PROC: 5A09357 Assistance with Respiratory Ventilation, Less than 24 Consecutive Hours, Continuous Positive Airway Pressure (ICD-10-PCS; 2019-07-23)
PROC: 5A09357 Assistance with Respiratory Ventilation, Less than 24 Consecutive Hours, Continuous Positive Airway Pressure (ICD-10-PCS; 2019-07-24)
DX: A41.9 Sepsis, unspecified organism (principal); J96.01 Acute respiratory failure with hypoxia; J15.6 Pneumonia due to other Gram-negative bacteria; E43 Unspecified severe protein-calorie malnutrition; J15.1 Pneumonia due to Pseudomonas; J96.02 Acute respiratory failure with hypercapnia; N17.9 Acute kidney failure, unspecified; J44.1 Chronic obstructive pulmonary disease with (acute) exacerbation; I48.21 Permanent atrial fibrillation; I50.30 Unspecified diastolic (congestive) heart failure; I13.0 Hypertensive heart and chronic kidney disease with heart failure and stage 1 through stage 4 chronic kidney disease, or unspecified chronic kidney disease; I69.351 Hemiplegia and hemiparesis following cerebral infarction affecting right dominant side; K57.90 Diverticulosis of intestine, part unspecified, without perforation or abscess without bleeding; M54.9 Dorsalgia, unspecified; M25.559 Pain in unspecified hip; N18.9 Chronic kidney disease, unspecified; D64.9 Anemia, unspecified; G89.4 Chronic pain syndrome; K31.84 Gastroparesis; E66.9 Obesity, unspecified; K21.9 Gastro-esophageal reflux disease without esophagitis; R65.20 Severe sepsis without septic shock; Z88.1 Allergy status to other antibiotic agents; Z86.718 Personal history of other venous thrombosis and embolism; Z86.711 Personal history of pulmonary embolism; Z88.6 Allergy status to analgesic agent; Z88.0 Allergy status to penicillin; Z68.29 Body mass index [BMI] 29.0-29.9, adult; Z82.49 Family history of ischemic heart disease and other diseases of the circulatory system; Z79.01 Long term (current) use of anticoagulants; Z95.828 Presence of other vascular implants and grafts
CPT/HCPCS: 10078; 10203; 10879